=== PATIENT | female | born 1995 | race Caucasian/White ===

== ENCOUNTER → 2020-08-17 09:40 | Outpatient (CLI) | payer BC, SELFPAY ==
--- NOTE | ~2020-08-17 | US_ITS ---
EXAMINATION: US abdomen complete EXAM DATE: 08/17/2020 10:03 INDICATION: Abnormal liver enzymes. TECHNIQUE: Multiple grayscale and Doppler images of the complete abdomen were obtained (by a technolo gist who performed the scan) and subsequently reviewed. There is no prior study for comparison. FINDINGS: The abdominal aorta is normal in caliber. IVC is not well visualized. The pancreatic head and body are normal in appearance. The pancreatic tail is not visualized. The liver has normal echogenicity and contour. There are no focal liver lesions identified. There is no evidence of intrahepatic biliary duct dilation. Portal venous flow was seen in the hepatopedal , normal direction and has normal Doppler waveform. Common bile duct measures 4 mm, which is normal. The gallbladder wall is normal in thickness, with ex pected amount of distention. No sonographic evidence of pericholecystic fluid. Multiple gallstones are present. Technologist performing exam reports patient did not demonstrate sonographic Green[place]'s s ign. Please note that this sign is less reliable in patients who have received pain medication. Right kidney: There is normal contour and echogenicity. It measures 9.5 x 3.8 x 4.6 centimeters. T here are no focal renal lesions identified. There is no hydronephrosis. Left kidney: There is normal contour and echogenicity. It measures 9.3 x 4.9 x 4.9 centimeters. Th ere are no focal renal lesions identified. There is no hydronephrosis. The spleen measures 9.1 x 4.2 centimeters and is morphologically normal. IMPRESSION: 1. Multiple gallstones. Reviewed, dictated and finalized at location A. IMPRESSION: 1. Multiple gallstones.
== END ==
PROVIDERS: PCP Internal Medicine; Visit Provider Internal Medicine
DX: R79.89 Other specified abnormal findings of blood chemistry (principal); K80.20 Calculus of gallbladder without cholecystitis without obstruction
CPT/HCPCS: 76700

== ENCOUNTER 2022-04-12 11:46 | Emergency (ER) | payer BC, SELFPAY ==
[2022-04-12 12:09] VITALS: BP 127/83; PULSE 99; RESP 18; TEMP 36.4; O2SAT 100
--- NOTE | 2022-04-12 12:26 | ED.GENADULT ---
HPI - General Adult General Chief complaint: Skin/Abscess/Foreign Body Stated complaint: burn lt foot History of Present Illness HPI narrative: Patient is a 26-year-old female who presents to the [facility] via POV for an evaluation of a burn located on left foot that occurred just prior to arrival. Patient reports she was cooking mcmahan when mcmahan grease accidentally spilled on top of left foot. She reports the area to be painful, erythematous, and blistery. Cold water and aloe vera provides some relief. Patient washed the area with cold water and soap after incident. Related Data Home Medications Medication Instructions Recorded Confirmed cholecalciferol (vitamin D3) 25 25 mcg PO DAILY 03/26/21 04/12/22 mcg (1,000 unit) capsule Allergies Allergy/AdvReac Type Severity Reaction Status Date / Time amoxicillin Allergy Severe Hives Verified 02/12/22 10:02 lavender (Lavandula Allergy Unknown Verified 04/12/22 12:20 angustifolia) Review of Systems Review of Systems: Denies fever, chills, sweats, change in appetite, paresthesias, loss of sensation, decreased range of motion, streaking, open wound, dizziness, LOC, nausea, vomiting, diarrhea, chest pain, heart palpitations, and shortness of breath PMFSH Surgical History Surgical History [place] teeth removed Family History Family History Mother Diabetes mellitus Cancer of kidney Grandparent Diabetes mellitus Father Patient's father is in good health Social History Social History Second hand tobacco smoke exposure: No Alcohol intake: former Substance use: never Substance use type: does not use Gender identity (if verbalized by the patient): Female Agree to blood products: Yes Comments I have reviewed and agree with the patient's past medical, surgical, social, and family hx as documented by the RN. There is no relevant family history pertinent to the presenting complaint. Exam Narrative: GENERAL: Well-appearing, well-nourished, and in no acute distress. HEAD: Normocephalic, atraumatic. No facial swelling appreciated. EYES: PERRLA and EOMI. No evidence of erythema, swelling, or drainage. ENT: Nares clear, no rhinorrhea or epistaxis.Mucous membranes moist and pink. Uvula is midline without erythema and swelling. No evidence of obstruction, petechial rash, cobblestoning, lesions, ulcers, erythema, swelling, exudates, peritonsillar abscess, tenting, or drooling. Breath odor and voice normal. NECK: Supple. No Lymphadenopathy or nuchal rigidity appreciated. CHEST: Bilateral lung fountain are clear to auscultation. No respiratory distress. No evidence of cough or pleuritic cp upon examination. HEART: Regular rate and rhythm. No murmur, gallop, or rub heard. EXTREMITIES: Normal range of motion. No edema. SKIN: Warm, dry. Burn of second-degree noted to dorsal aspect of left foot. NEURO: No focal deficits. Alert and oriented x3. SPECIAL OBSERVATIONS: Smiling. Laughing. No evidence of discomfort. Course Course Level of Care: Express [facility] Visit Vital Signs Vital signs: Vital Signs Temperature 97.6 F 04/12/22 12:09 Pulse Rate 99 04/12/22 12:09 Respiratory Rate 18 04/12/22 12:09 Blood Pressure 127/83 04/12/22 12:09 Pulse Oximetry 100 04/12/22 12:09 Oxygen Delivery Room Air 04/12/22 12:09 Temperature 97.6 F 04/12/22 12:09 Pulse Rate 99 04/12/22 12:09 Respiratory Rate 18 04/12/22 12:09 Blood Pressure 127/83 04/12/22 12:09 Pulse Oximetry 100 04/12/22 12:09 Oxygen Delivery Room Air 04/12/22 12:09 Medical Decision Making Vital Signs Vital Signs: Vital Signs Temperature 97.6 F 04/12/22 12:09 Pulse Rate 99 04/12/22 12:09 Respiratory Rate 18 04/12/22 12:09 Blood Pressure 127/83 04/12/22 12:09 Pulse O
== END 2022-04-12 12:40 | disposition home or self-care (01) ==
PROVIDERS: Emergency Provider Nurse Practitioner Family; PCP Internal Medicine
DX: T25.222A Burn of second degree of left foot, initial encounter (principal); X10.2XXA Contact with fats and cooking oils, initial encounter; Y93.G3 Activity, cooking and baking
CPT/HCPCS: 99213; G0463

== ENCOUNTER 2022-06-12 10:09 | Emergency (ER) | payer BC, SELFPAY ==
[2022-06-12 10:20] VITALS: BP 113/70; PULSE 95; RESP 18; TEMP 36.7; O2SAT 99
--- NOTE | 2022-06-12 10:26 | ED.EAR ---
HPI - Ear Problem General Chief complaint: Ear Stated complaint: ear pain Time Seen by Provider: 06/12/22 10:25 History of Present Illness HPI Narrative: Ashley Nickerson is a 26 yo female with a PMH of ADD and chronic ear problems, to [facility] with a potential ear infection she has been symptomatic for 5 days. Her doctor has rescheduled her multiple times according to patient Related Data Home Medications Medication Instructions Recorded Confirmed cholecalciferol (vitamin D3) 25 25 mcg PO DAILY 03/26/21 04/12/22 mcg (1,000 unit) capsule Allergies Allergy/AdvReac Type Severity Reaction Status Date / Time amoxicillin Allergy Severe Hives Verified 06/12/22 10:24 lavender (Lavandula Allergy Unknown Verified 06/12/22 10:24 angustifolia) Review of Systems Review of Systems: CONSTITUTIONAL: Denies fever, chills, sweats. EYES: Denies visual changes, redness, discharge. ENT: Denies rhinorrhea, congestion, sore throat, bilateral otalgia. CARDIOVASCULAR: Denies chest pain, palpitations, edema. RESPIRATORY: Denies dyspnea, wheezing, cough GASTROINTESTINAL: Denies abdominal pain, nausea, vomiting, diarrhea. GENITOURINARY: Denies dysuria, hematuria, abnormal discharge SKIN: Denies rash or itching. NEUROLOGIC: Denies numbness, or focal weakness. PSYCHIATRIC: Denies anxiety or depression. PMFSH Past Medical History Medical History ADD (attention deficit disorder) Surgical History Surgical History [place] teeth removed Family History Family History Mother Diabetes mellitus Cancer of kidney Grandparent Diabetes mellitus Father Patient's father is in good health Social History Social History Second hand tobacco smoke exposure: No Alcohol intake: former Substance use: never Substance use type: does not use Gender identity (if verbalized by the patient): Female Agree to blood products: Yes Comments At time of signature, I agree with nursing past medical, surgical, social and family history. There is no relevant family history pertinent to the presenting complaint. Exam Narrative: GENERAL: This is a well-nourished, well-developed patient, in mild distress. HEAD: normocephalic, atraumatic. EYES: . Sclera clear/white. Vision is grossly intact. EARS: External ears normal, auditory canals bilateral erythema and without drainage, TM not visualized well on the left . Hearing grossly intact. NOSE: External nose normal without nasal discharge, nares without redness, no rhinorrhea. THROAT: Mucous membranes moist, NECK: Neck supple, non-tender CARDIOVASCULAR: Regular rate and rhythm without murmurs, gallops, or rubs. RESPIRATORY: Clear to auscultation. Breath sounds equal bilaterally. No wheezes, rales, or rhonchi. GASTROINTESTINAL: Not done SKIN: warm, intact with no suspicious lesions or rash, good texture and turgor. NEURO: awake, alert, and oriented to person, place and time. There were no obvious focal neurologic abnormalities. Steady gait EXTREMITIES: Normal range of motion. BACK: Nontender without deformity Course Course Emergency Course: Patient here with bilateral ear pain left worse than right has tried to go to primary care physician and been unable to get in Started on clindamycin and eardrops will continue to take allergy medication to control drainage Level of Care: Express Care Visit Vital Signs Vital signs: Vital Signs Temperature 98.1 F 06/12/22 10:20 Pulse Rate 95 06/12/22 10:20 Respiratory Rate 06/12/22 10:20 Blood Pressure 113/70 06/12/22 10:20 Pulse Oximetry 99 06/12/22 10:20 Oxygen Delivery Room Air 06/12/22 10:20 Temperature 98.1 F 06/12/22 10:20 Pulse Rate 95 06/12/22 10:20 Respiratory Rate 18 06/12/22 10:2
== END 2022-06-12 10:42 | disposition home or self-care (01) ==
PROVIDERS: Emergency Provider Nurse Practitioner; PCP Internal Medicine
DX: H66.005 Acute suppurative otitis media without spontaneous rupture of ear drum, recurrent, left ear (principal); F98.8 Other specified behavioral and emotional disorders with onset usually occurring in childhood and adolescence
CPT/HCPCS: 99213; G0463

== ENCOUNTER 2024-11-24 09:31 | Outpatient (CLI) | payer OTHER, SELFPAY ==
--- NOTE | ~2024-11-24 | US_ITS ---
EXAM: ABDOMEN ULTRASOUND HISTORY: R74.01 - Elevation of levels of liver transaminase levels COMPARISON: 08/17/2020 FINDINGS: LIVER: The liver is increased in echogenicity and size measuring 15 cm in longitudinal dimension. The portal vein is patent demonstrating hepatopedal flow. GALLBLADDER: Redemonstration of multiple stones within the gallbladder, which is otherwise unremarkab le. The stones are bulky and mobile. No gallbladder wall thickening or pericholecystic fluid. BILE DUCTS: Common bile duct measures 1.6mm. PANCREAS: Limited evaluation of the pancreas secondary to overlying bowel gas RIGHT KIDNEY: 11.3 cm. In length. No hydronephrosis or bulky renal calculi. Prominence of the right renal pelvis, possibly a pararenal cyst. This is an interval change from 08/17/2020, which may represent early hydronephrosis. VASCULATURE : The abdominal aorta is nonaneurysmal. The IVC is patent. IMPRESSION: Cholelithiasis, without ultrasound evidence of cholecystitis, unchanged from 08/17/2020. Findings within the right kidney for which focused retroperitoneal ultrasound versus contrast enhance d CT examination is suggested. Reviewed, dictated and finalized at location A. UND SALES CONSULTANT IMPRESSION: Cholelithiasis, without ultrasound evidence of cholecystitis, unchanged from . Findings within the right kidney for which focused retroperitoneal ultrasound v ersus contrast enhanced CT examination is suggested.
== END 2024-11-24 09:32 | disposition home or self-care (01) ==
PROVIDERS: PCP Nurse Practitioner Family; Visit Provider Nurse Practitioner Family
DX: K80.20 Calculus of gallbladder without cholecystitis without obstruction (principal); R93.5 Abnormal findings on diagnostic imaging of other abdominal regions, including retroperitoneum; R74.01 Elevation of levels of liver transaminase levels
CPT/HCPCS: 76705

== ENCOUNTER 2024-12-13 06:31 | Outpatient (CLI) | payer OTHER, SELFPAY ==
--- NOTE | ~2024-12-13 | CT_ITS ---
EXAMINATION: CT abdomen pelvis w con DATE: 12/13/2024 07:09 INDICATION: Evaluate right kidney. TECHNIQUE: Computed tomography (CT) of the abdomen and pelvis was performed with 100 cc Omnipaque 350 intravenous contrast. The dose-length product was 1117.68 mGy-cm. Automated exposure control and ite rative reconstruction technique were employed. COMPARISON: None. FINDINGS: Lung bases unremarkable. Heart size normal. No significant pleural or pericardial effusion. No significant atherosclerosis. Fatty infiltration of the liver. There are gallstones. The spleen, pancreas, adrenal glands and left kidney are unremarkable. There is a tiny area of macroscopic fat in the right renal pelvis, probable no acute osseous abnormality. Small benign angiomyolipoma measuring 4 mm. No hydronephrosis. Nonobstr uctive bowel gas pattern. There are follicular changes in the ovaries. No abnormal pelvic masses or f luid collections. No free air. No evidence for hernia. No focal lytic or blastic lesions. There is le voscoliosis of the lumbar spine. IMPRESSION: 1. No acute abdominal abnormality. 2: Cholelithiasis. 3: Fatty infiltration of the liver. 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 Reviewed, dictated and finalized at location A. E PRINCIPAL SOLUTION SPECIALIST
--- OUTSIDE RECORDS SUMMARY | 2024-12-13 06:35 | XMS_ITS | Clinical Summary ---
Author Organization [address] Address [address] [place] [id number] Care Team Providers Care Lottery Manager Name Role Phone No, Physician Primary Care Provider [phone] Allergies Active Allergy Reactions Criticality Noted Date Comments Amoxicillin Hives Medium 02/03/2023 Medications ergocalciferol, vitamin D2, (VITAMIN D2 ORAL) Take by mouth Active Active Problems No known active problems Social History Tobacco Use Types Packs/Day Years Used Date Smoking Tobacco: Never Assessed Tobacco Cessation:Counseling Given: Not Answered Personal Safety Answer Date Recorded Getting School Help Needed Not on file 01/09 Comments Unknown Sex and Gender Information Value Date Recorded Sex Assigned at Not on file Legal Sex Female 12:22 PM ORDER CLERK Gender Identity Not on file Sexual Orientation Not on file Obstetrics History Last Filed Vital Signs Vital Sign Reading Time Taken Comments Blood Pressure 126/78 02/03/2023 6:20 PM CDT Pulse 86 02/03/2023 6:20 PM CDT Temperature 36.8 ??C (98.3 ??F) 02/03/2023 6:20 PM CD T Respiratory Rate - - Oxygen Saturation 98% 02/03/2023 6:20 PM CDT Inhaled Oxygen Concentration - - Weight 113.9 kg (251 lb) 02/03/2023 6:20 PM CDT Height 160 cm (5' 3 ) 02/03/2023 6:20 PM CDT Body Mass Index 44.46 02/03/2023 6:20 PM CDT Plan of Treatment Health Maintenance Due Date Last Done Comments Cervical Cancer Screening 1997 Depression Screening 1997 Hepatitis C Screening 1997 DTaP/Tdap/Td Vaccine (1 - Tdap) 2008 Varicella Vaccines (1 of 2 - 13+ 2-dose series) 2010 Hepatitis B Screening 2015 Regular Well Visit/Exam 18-64 2015 Covid-19 Vaccine (2023- season) 2024 11/01/2021, 02/15/2021, 01/18/2021 Influenza Vaccine (#1) 2024 2, 09/08/2021, 08/20/2020, Additional history exists HPV Vaccines Aged Out No longer eligi ble based on patient's age to complete this topic Pneumococcal vaccine <65 Aged Out No longer eligible based on patient's age to complete this topic Insurance [employer] Care Teams Lottery Manager Relationship Specialty Start Date End Date No, Physician PCP - General 02/03/23
--- OUTSIDE RECORDS SUMMARY | 2024-12-13 06:35 | XMS_ITS | Referral Summary ---
Author Organization [address] Address [address] [place] [id number] Care Team Providers Care Tape Machine Tailer Name Role Phone No, Physician Primary Care Provider [phone] Allergies Active Allergy Reactions Criticality Noted Date [...] on file Legal Sex Female 12:22 PM GROUNDHAND Gender Identity Not on file Sexual Orientation Not on file Last Filed Vital Signs Vital Sign Reading [...] 02/03/2023 6:20 PM CDT Plan of Treatment Not on file Insurance [employer] Care Teams Tape Machine Tailer Relationship Specialty Start Date End Date No, Physician PCP - General 02/03/23
== END 2024-12-13 06:32 | disposition home or self-care (01) ==
PROVIDERS: PCP Nurse Practitioner Family; Visit Provider Nurse Practitioner Family
DX: R93.5 Abnormal findings on diagnostic imaging of other abdominal regions, including retroperitoneum (principal); K80.20 Calculus of gallbladder without cholecystitis without obstruction; K76.0 Fatty (change of) liver, not elsewhere classified
CPT/HCPCS: 74177; Q9967